=== PATIENT | female | born 1990 | race Caucasian/White ===

== ENCOUNTER 2017-04-01 17:04 | Observation (INO) | payer BC | END 2017-04-01 17:50 | disposition home or self-care (01) | LOC: SPU 17:04 | PROVIDERS: ADMIT Specialist; ATTEND Specialist | DX: O26.892 Other specified pregnancy related conditions, second trimester (principal); N89.8 Other specified noninflammatory disorders of vagina; Z3A.21 21 weeks gestation of pregnancy | CPT/HCPCS: G0378 ==

== ENCOUNTER 2017-07-18 19:12 | Inpatient (IN) | payer BC ==
[~2017-07-18] VITALS: Ht 170.2 cm; Wt 94.8 kg
[2017-07-18] MEDS: LR 1,000 ML IV SCH (19:51)
[2017-07-18] MEDS ORDERED: TERBUTALINE SULFATE 1 MG/ML VIAL IVP ONE (20:00)
[2017-07-18] MEDS ORDERED: CEFAZOLIN 2 GM IVPB PREMIX 50 ML IV ONE (20:00)
[2017-07-18 20:33] LABS: BILIRUBIN,URINE NEGATIVE (NEGATIVE); BLOOD, URINE NEGATIVE (NEGATIVE); CLARITY/URINE CLEAR (CLEAR); COLOR,URINE YELLOW (YELLOW); GLUCOSE,URINE NEGATIVE (NEGATIVE); KETONES,URINE NEGATIVE (NEGATIVE); LEUKOCYTE ESTERASE ,URINE NEGATIVE (NEGATIVE); NITRITE, URINE NEGATIVE (NEGATIVE); PROTEIN URINE NEGATIVE (NEGATIVE); UROBILINOGEN,URINE 0.2 (0.2-1.0)
[2017-07-18 20:38] LABS: BASOPHILS % (AUTO) 0.2 % (0.0-2.0); EOSINOPHILS # (AUTO) 0.2 K/uL (0.0-0.4); EOSINOPHILS % (AUTO) 1.4 % (0.0-4.0); HEMATOCRIT 31.5 % (36-48); HEMOGLOBIN 10.9 g/dL (12.0-16.0); LYMPHOCYTES # (AUTO) 3.6 K/uL (1.0-5.5); LYMPHOCYTES % (AUTO) 30.3 % (20.5-51.5); MEAN CORPUSCULAR HEMOGLOBIN 31 pg (27-31); MEAN CORPUSCULAR HGB CONC 35 % (32-36); MEAN CORPUSCULAR VOLUME 89 fL (79.0-98.0); MONOCYTES # (AUTO) 0.7 K/uL (0.0-1.0); MONOCYTES % (AUTO) 5.9 % (1.7-9.3); NEUTROPHILS # (AUTO) 7.2 K/uL (1.8-7.7); NEUTROPHILS % (AUTO) 62.2 % (40.0-70.0); PLATELET COUNT (AUTO) 296 K/uL (130-430); RED BLOOD CELL COUNT(AUTO) 3.54 MIL/uL (4.2-6.2); RED CELL DISTRIBUTION WIDTH 12.3 % (9.0-15.0); WHITE BLOOD COUNT (AUTO) 11.7 K/uL (4.8-10.8)
[2017-07-19] MEDS ORDERED: TERBUTALINE SULFATE 1 MG/ML VIAL SUBCUT ONE (00:15)
[2017-07-19 03:05] VITALS: BP_SYST 121
[2017-07-19] MEDS: LR 1,000 ML IV SCH (03:56)
[2017-07-19] MEDS ORDERED: KETOROLAC TROMETHAMINE 30 MG VIAL IVP ONE (09:30)
[2017-07-19] MEDS ORDERED: ONDANSETRON HCL 4 MG/2 ML VIAL IVP ONE ×2 (09:30→09:52)
[2017-07-19] MEDS ORDERED: MEPERIDINE HCL/PF 25 MG/ML DISP.SYRIN IVP PRN (09:30)
[2017-07-19] MEDS ORDERED: NALOXONE HCL 0.4 MG/ML AMP (NARCAN) IVP ONE (09:30)
[2017-07-19] MEDS ORDERED: fentaNYL CITRATE/PF 100 MCG/2 ML AMP IVP PRN (09:30)
[2017-07-19] MEDS ORDERED: MIDAZOLAM HCL 5 MG/5 ML VIAL IVP PRN (09:30)
[2017-07-19] MEDS ORDERED: MORPHINE 4 MG/ML INJ. SYRINGE IVP PRN (09:30)
[2017-07-19] MEDS ORDERED: LR 1,000 ML IV SCH (09:35)
[2017-07-19] MEDS ORDERED: OXYTOCIN/0.9 % SODIUM CHLORIDE 1,000 ML IV ONE (09:35)
[2017-07-19] MEDS ORDERED: LANOLIN 7 GM OINT. TP PRN (09:45)
[2017-07-19] MEDS ORDERED: RHO(D) IMMUNE GLOBULIN/MALTOSE 1500 UNITS/1.3 ML (WINHRO) IM PRN (09:45)
[2017-07-19] MEDS ORDERED: BISACODYL 10 MG/SUPPOSITORY RC PRN (09:45)
[2017-07-19] MEDS ORDERED: DIPH-TET-PERTUS Vaccine 0.5 ML VIAL (ADACEL) I.M. PRN (09:45)
[2017-07-19] MEDS ORDERED: SIMETHICONE 80 MG TAB.CHEW PO PRN (09:45)
[2017-07-19] MEDS ORDERED: MEASLES,MUMPS&RUBELLA VACC/PF 12500 UNIT/0.5 ML VIAL SUBQ PRN (09:45)
[2017-07-19] MEDS ORDERED: OXYCODONE/ACETAMINOPHEN 5-325 TABLET PO PRN (09:45)
[2017-07-19] MEDS ORDERED: SENNOSIDES/DOCUSATE SODIUM 1 TAB TABLET(SENOKOT-S) PO PRN (09:45)
[2017-07-19] MEDS ORDERED: ANUSOL 1 EA SUPP.RECT (PREPARATION H) RC PRN (09:45)
[2017-07-19 09:50] VITALS: BP_SYST 111
[2017-07-19] MEDS ORDERED: NS IRRIG SOLN 1000 ML IR ONE (09:52)
[2017-07-19] MEDS ORDERED: fentaNYL CITRATE/PF 100 MCG/2 ML AMP IVP ONE (09:52)
[2017-07-19] MEDS ORDERED: MEPERIDINE HCL/PF 25 MG/ML DISP.SYRIN IVP ONE (09:52)
[2017-07-19] MEDS ORDERED: BUPIVACAINE /DEX PF 0.75% SPINAL 2 ML AMP INJ ONE (09:52)
[2017-07-19] MEDS ORDERED: MIDAZOLAM HCL 5 MG/ML VIAL (VERSED) IV ONE (09:52)
[2017-07-19] MEDS ORDERED: PROPOFOL 200MG/ 20ML VIAL (DIPRIVAN) IV ONE (09:52)
[2017-07-19] MEDS ORDERED: LR 1,000 ML IV.SOLN IV ONE (09:52)
[2017-07-19] MEDS ORDERED: DIPHENHYDRAMINE INJ 50 MG/ML VIAL ONE (10:14)
[2017-07-19] MEDS ORDERED: DIPHENHYDRAMINE INJ 50 MG/ML VIAL IVP ONE (10:15)
[2017-07-19] MEDS ORDERED: TEMAZEPAM 15 MG CAPSULE PO PRN (21:00)
[2017-07-20] MEDS: DOCUSATE SODIUM 100 MG CAPSULE PO PRN ×2 (03:43→16:56)
[2017-07-20] MEDS: IBUPROFEN 600 MG TABLET PO SCH ×4 (06:57→23:48)
[2017-07-20 07:02] LABS: BASOPHILS % (AUTO) 0.3 % (0.0-2.0); EOSINOPHILS # (AUTO) 0.1 K/uL (0.0-0.4); EOSINOPHILS % (AUTO) 1.1 % (0.0-4.0); HEMATOCRIT 28.9 % (36-48); HEMOGLOBIN 9.7 g/dL (12.0-16.0); LYMPHOCYTES % (AUTO) 17.8 % (20.5-51.5); MEAN CORPUSCULAR HEMOGLOBIN 30 pg (27-31); MEAN CORPUSCULAR HGB CONC 34 % (32-36); MEAN CORPUSCULAR VOLUME 89 fL (79.0-98.0); MONOCYTES # (AUTO) 0.8 K/uL (0.0-1.0); MONOCYTES % (AUTO) 6.7 % (1.7-9.3); NEUTROPHILS # (AUTO) 8.5 K/uL (1.8-7.7); NEUTROPHILS % (AUTO) 74.1 % (40.0-70.0); PLATELET COUNT (AUTO) 264 K/uL (130-430); RED BLOOD CELL COUNT(AUTO) 3.23 MIL/uL (4.2-6.2); RED CELL DISTRIBUTION WIDTH 12.6 % (9.0-15.0); WHITE BLOOD COUNT (AUTO) 11.4 K/uL (4.8-10.8)
[2017-07-20] MEDS ORDERED: CEFAZOLIN 2 GM IVPB PREMIX 50 ML IV ONE ×2 (12:30→12:44)
[2017-07-20] MEDS: OXYCODONE/ACETAMINOPHEN 5-325 TABLET PO PRN ×2 (16:56→20:51)
[2017-07-21] MEDS: IBUPROFEN 600 MG TABLET PO SCH ×2 (05:38→11:46)
[2017-07-21] MEDS ORDERED: FIORCET PO PRN ×3 (09:15→12:30)
[2017-07-21] MEDS ORDERED: FIORCET ONE (09:21)
[2017-07-22] MEDS ORDERED: IBUP-1969 PO (21:19)
[2017-07-22] MEDS ORDERED: OXYC-130 PO (21:19)
[2017-07-22] MEDS ORDERED: BUTA1CAP44 PO (21:19)
== END 2017-07-21 13:25 | disposition home or self-care (01) | DRG 765 ==
LOC: OBSVTOIN 19:12 → SPU 19:12
PROVIDERS: ADMIT Obstetrics & Gynecology; ATTEND Obstetrics & Gynecology
PROC: 0UB70ZZ Excision of Bilateral Fallopian Tubes, Open Approach (ICD-10-PCS; 2017-07-19)
PROC: 10D00Z1 Extraction of Products of Conception, Low, Open Approach (ICD-10-PCS; principal; 2017-07-19 08:30)
PROC: 3E0R3GC Introduction of Other Therapeutic Substance into Spinal Canal, Percutaneous Approach (ICD-10-PCS; 2017-07-20)
DX: O34.211 Maternal care for low transverse scar from previous cesarean delivery (principal); O60.14X0 Preterm labor third trimester with preterm delivery third trimester, not applicable or unspecified; O09.219 Supervision of pregnancy with history of pre-term labor, unspecified trimester; O89.4 Spinal and epidural anesthesia-induced headache during the puerperium; Z30.2 Encounter for sterilization; Z37.0 Single live birth; Z3A.36 36 weeks gestation of pregnancy
CPT/HCPCS: 36415; 59025; 59899; 81003; 85025; 86592; 86886; 86900; 86901; 88302; 88305; 94760; A4618; J0690; J1200; J1885; J2175; J2250; J2405; J2590; J2704; J3010; J3105; J3490; J7120

== ENCOUNTER 2017-07-22 19:51 | Inpatient (IN) | payer BC ==
[~2017-07-22] VITALS: Ht 170.2 cm; Wt 91.6 kg
[2017-07-22 19:55] VITALS: BP_SYST 123
[2017-07-22] MEDS ORDERED: NACL 0.9% 1,000 ML IV ONE (20:55)
[2017-07-22 21:11] LABS: BILIRUBIN,URINE NEGATIVE (NEGATIVE); BLOOD, URINE 3+ (NEGATIVE); CLARITY/URINE CLOUDY (CLEAR); COLOR,URINE YELLOW (YELLOW); GLUCOSE,URINE NEGATIVE (NEGATIVE); KETONES,URINE NEGATIVE (NEGATIVE); LEUKOCYTE ESTERASE ,URINE TRACE (NEGATIVE); NITRITE, URINE NEGATIVE (NEGATIVE); PROTEIN URINE 1+ (NEGATIVE); UROBILINOGEN,URINE 0.2 (0.2-1.0)
[2017-07-22] MEDS ORDERED: IBUP-1969 PO (21:19)
[2017-07-22] MEDS ORDERED: BUTA1CAP44 PO (21:19)
[2017-07-22] MEDS ORDERED: OXYC-130 PO (21:19)
[2017-07-22 21:27] LABS: BACTERIA,URINE MODERATE /HPF (None Seen); MUCUS,URINE None Seen /LPF (None Seen); RBC,URINE 50-80 /HPF (0-3)
[2017-07-22 21:43] LABS: BASOPHILS % (AUTO) 0.6 % (0.0-2.0); EOSINOPHILS # (AUTO) 0.4 K/uL (0.0-0.4); EOSINOPHILS % (AUTO) 5.3 % (0.0-4.0); HEMATOCRIT 29.7 % (36-48); LYMPHOCYTES # (AUTO) 3.1 K/uL (1.0-5.5); LYMPHOCYTES % (AUTO) 37.3 % (20.5-51.5); MEAN CORPUSCULAR HEMOGLOBIN 30 pg (27-31); MEAN CORPUSCULAR HGB CONC 34 % (32-36); MEAN CORPUSCULAR VOLUME 90 fL (79.0-98.0); MONOCYTES # (AUTO) 0.5 K/uL (0.0-1.0); MONOCYTES % (AUTO) 5.9 % (1.7-9.3); NEUTROPHILS # (AUTO) 4.3 K/uL (1.8-7.7); NEUTROPHILS % (AUTO) 50.9 % (40.0-70.0); PLATELET COUNT (AUTO) 364 K/uL (130-430); RED CELL DISTRIBUTION WIDTH 12.6 % (9.0-15.0); WHITE BLOOD COUNT (AUTO) 8.3 K/uL (4.8-10.8)
[2017-07-22 21:51] LABS: CALCIUM 8.2 mg/dL (8.4-11.0); CREATININE 0.65 mg/dL (0.55-1.30); POTASSIUM 3.4 mmol/L (3.5-5.1)
[2017-07-22 21:54] LABS: PROTHROMBIN TIME 9.9 SECS (9.5-12.5)
[2017-07-22 21:55] LABS: ALBUMIN 2.3 g/dL (3.4-4.8); TOTAL BILIRUBIN 0.3 mg/dL (0.0-1.0)
[2017-07-22] MEDS ORDERED: MORPHINE 4 MG/ML INJ. SYRINGE ONE (22:13)
[2017-07-22] MEDS ORDERED: DIPHENHYDRAMINE INJ 50 MG/ML VIAL IVP ONE (22:15)
[2017-07-22] MEDS ORDERED: MORPHINE 2 MG/ML INJ. SYRINGE IVP ONE (22:15)
[2017-07-22] MEDS ORDERED: cefTRIAXone 1 GM IVPB PREMIX 50 ML IV ONE (23:00)
[2017-07-22] MEDS ORDERED: IBUPROFEN 600 MG TABLET PO PRN (23:30)
[2017-07-22] MEDS ORDERED: OXYCODONE/ACETAMINOPHEN 5-325 TABLET PO PRN (23:30)
[2017-07-22 23:40] VITALS: BP_SYST 112
[2017-07-23 08:23] VITALS: BP_SYST 120
[2017-07-23] MEDS ORDERED: ACETAMINOPHEN 325 MG TABLET PO PRN (09:30)
[2017-07-23 11:23] VITALS: BP_SYST 130
[2017-07-23] MEDS ORDERED: LANOLIN 7 GM OINT. TP PRN (12:45)
[2017-07-23] MEDS ORDERED: SENNOSIDES/DOCUSATE SODIUM 1 TAB TABLET(SENOKOT-S) PO PRN (12:45)
[2017-07-23] MEDS ORDERED: HYDROCORTISONE 0.5%, 28.35 GM TOPICAL CREAM TP PRN (12:45)
[2017-07-23] MEDS ORDERED: ANUSOL 1 EA SUPP.RECT (PREPARATION H) RC PRN (12:45)
[2017-07-23] MEDS ORDERED: GLYCERIN/WITCH HAZEL (TUCKS PADS) TP PRN (12:45)
[2017-07-23] MEDS: ONDANSETRON HCL 4 MG/2 ML VIAL IVP PRN (13:36)
[2017-07-23] MEDS: MORPHINE 4 MG/ML INJ. SYRINGE IVP PRN ×2 (13:36→17:32)
[2017-07-23 15:39] VITALS: BP_SYST 116
[2017-07-23] MEDS ORDERED: VALPROATE SODIUM 1,000 MG in NS 100 ML IV ONE (19:22)
[2017-07-23 20:00] VITALS: BP_SYST 116
[2017-07-24 00:52] VITALS: BP_SYST 107
[2017-07-24] MEDS: PREDNISONE 20 MG TABLET PO SCH ×2 (01:02→08:18)
[2017-07-24] MEDS ORDERED: PREDNISONE 20 MG TABLET ONE (01:05)
[2017-07-24] MEDS: MORPHINE 4 MG/ML INJ. SYRINGE IVP PRN ×5 (01:06→21:36)
[2017-07-24 07:50] VITALS: BP_SYST 115
[2017-07-24] MEDS: DOCUSATE SODIUM 100 MG CAPSULE PO PRN (08:23)
[2017-07-24] MEDS: ONDANSETRON HCL 4 MG/2 ML VIAL IVP PRN ×2 (08:50→17:09)
[2017-07-24 12:10] VITALS: BP_SYST 100
[2017-07-24] MEDS ORDERED: GADOPENTETATE DIMEGLUMINE 15 ML VIAL IV ONE (14:45)
[2017-07-24 16:31] VITALS: BP_SYST 128
[2017-07-24 20:00] VITALS: BP_SYST 114
[2017-07-24 23:29] VITALS: BP_SYST 113
[2017-07-25] MEDS: ONDANSETRON HCL 4 MG/2 ML VIAL IVP PRN (07:03)
[2017-07-25 08:05] VITALS: BP_SYST 124
[2017-07-25] MEDS: PREDNISONE 20 MG TABLET PO SCH (08:56)
[2017-07-25] MEDS: MORPHINE 4 MG/ML INJ. SYRINGE IVP PRN ×2 (09:00→18:58)
[2017-07-25 12:40] VITALS: BP_SYST 112
[2017-07-25] MEDS ORDERED: CEFAZOLIN 2 GM IVPB PREMIX 50 ML IV ONE (13:15)
[2017-07-25 16:41] VITALS: BP_SYST 116
[2017-07-25 20:12] VITALS: BP_SYST 120
[2017-07-25] MEDS: DOCUSATE SODIUM 100 MG CAPSULE PO PRN (20:48)
[2017-07-25 23:33] VITALS: BP_SYST 106
[2017-07-26 08:06] VITALS: BP_SYST 120
[2017-07-26] MEDS ORDERED: PREDNISONE 20 MG TABLET PO SCH (09:00)
[2017-07-26 11:01] VITALS: BP_SYST 137
[2017-07-29] MEDS ORDERED: PREDNISONE 20 MG TABLET PO SCH (09:00)
== END 2017-07-26 11:35 | disposition home or self-care (01) | DRG 776 ==
LOC: SED 19:51 → SMU 23:20
PROVIDERS: ADMIT Internal Medicine Hospice and Palliative Medicine; ATTEND Internal Medicine Hospice and Palliative Medicine
PROC: 3E0R3GC Introduction of Other Therapeutic Substance into Spinal Canal, Percutaneous Approach (ICD-10-PCS; principal; 2017-07-25 13:30)
DX: O89.4 Spinal and epidural anesthesia-induced headache during the puerperium (principal); Z90.49 Acquired absence of other specified parts of digestive tract
CPT/HCPCS: 36415; 62273; 70544; 70553; 71045; 80053; 81000-TC; 81025; 83605; 83690-TC; 84484; 85025; 85610-TC; 85730-TC; 87040-TC; 87081; 87086; 93005; 96365; 96375; 99285; A9579; J0690; J0696; J1200; J2270; J2405; J7030; J7512